=== PATIENT | male | born 1935 | race Caucasian/White ===

== ENCOUNTER 2021-06-10 11:41 | Inpatient (IN) ==
[2021-06-10 13:43] LABS: Basophils % 0.2 % (0.0-0.8); Hematocrit 42.6 VOL% (42.0-52.0); Hemoglobin 14.4 GM/DL (14.0-18.0); Immature Granulocytes % 1.6 %; Immature Granulocytes Absolute 0.26 #; Lymphocytes # 0.5 10*3/uL (1.4-4.0); Lymphocytes % 3.1 % (21.2-54.2); Mean Corpuscular HGB Conc 33.8 GM/DL (32-36); Mean Corpuscular Volume 91.2 FL (87-102); Mean Platelet Volume 9.4 FL (9.6-12.0); Monocytes % 2.4 % (1.7-12.7); Neutrophils % 92.7 % (38.7-73.9); Platelet Count 197 T/CUMM (130-400); Red Blood Count 4.67 MC/CUMM (3.8-5.5); Red Cell Distribution Width 13.4 % (9.3-17.3); White Blood Count 16.3 T/CUMM (4-12)
[2021-06-10 13:55] LABS: Albumin 3.3 G/DL (3.4-5.0); Calcium 8.8 MG/DL (8.5-10.1); Osmolality,Calculated 279.1 MOS/KG (273-304); Potassium 3.8 MMOL/L (3.5-5.1); Total Protein 6.9 G/DL (6.4-8.2)
[2021-06-10 14:09] LABS: Band Neutrophils 20 % (0-10); Lymphocytes 4 % (20-55); Segmented Neutrophils 75 % (50-85); Total Cells Counted 100
[2021-06-10 14:10] LABS: Elliptocytes Few; Platelet Estimate Normal; Poikilocytosis Few
[2021-06-10] MEDS ORDERED: cefTRIAXone 1,000 MG in SODIUM CHLORIDE 0.9% 100 ML IV STA (14:12)
[2021-06-10] MEDS ORDERED: AZITHROMYCIN 250 MG TABLET PO STA (14:12)
[2021-06-10] MEDS ORDERED: ONDANSETRON 4 MG/2 ML VIAL IV PRN (14:26)
[2021-06-10] MEDS ORDERED: SODIUM CHLORIDE 0.9% 2,500 ML IV ONE (16:52)
[2021-06-10] MEDS ORDERED: ZALEPLON 5 MG CAPSULE PO PRN (17:54)
[2021-06-10 18:29] LABS: Bilirubin,Total 1.2 MG/DL (0.20-1.00); Calcium 8.3 MG/DL (8.5-10.1); Osmolality,Calculated 275.2 MOS/KG (273-304); Potassium 3.7 MMOL/L (3.5-5.1); Total Protein 6.2 G/DL (6.4-8.2)
[2021-06-10] MEDS ORDERED: CLOPIDOGREL 75 MG TABLET PO STA (20:10)
[2021-06-10] MEDS: ATORVASTATIN 40 MG TABLET PO SCH (21:19)
[2021-06-10] MEDS: TAMSULOSIN 0.4 MG CAPSULE PO SCH (21:19)
[2021-06-10] MEDS: DOCUSATE SODIUM 100 MG CAPSULE PO SCH (21:19)
[2021-06-10] MEDS: SODIUM CHLORIDE 0.45% 1,000 ML IV SCH (21:26)
[2021-06-11 00:48] LABS: Albumin 2.6 G/DL (3.4-5.0); Bilirubin,Total 0.9 MG/DL (0.20-1.00); Calcium 8.4 MG/DL (8.5-10.1); Osmolality,Calculated 274.2 MOS/KG (273-304); Potassium 3.6 MMOL/L (3.5-5.1)
[2021-06-11 00:54] LABS: Basophils % 0.1 % (0.0-0.8); Hematocrit 37.2 VOL% (42.0-52.0); Hemoglobin 12.5 GM/DL (14.0-18.0); Immature Granulocytes % 1.5 %; Immature Granulocytes Absolute 0.19 #; Lymphocytes # 0.6 10*3/uL (1.4-4.0); Lymphocytes % 4.8 % (21.2-54.2); Mean Corpuscular HGB Conc 33.6 GM/DL (32-36); Mean Corpuscular Volume 92.5 FL (87-102); Mean Platelet Volume 9.4 FL (9.6-12.0); Monocytes % 2.1 % (1.7-12.7); Neutrophils % 91.5 % (38.7-73.9); Platelet Count 166 T/CUMM (130-400); Red Blood Count 4.02 MC/CUMM (3.8-5.5); Red Cell Distribution Width 13.4 % (9.3-17.3); White Blood Count 12.5 T/CUMM (4-12)
[2021-06-11 01:33] LABS: Band Neutrophils 7 % (0-10); Lymphocytes 5 % (20-55); Platelet Estimate Normal; Segmented Neutrophils 86 % (50-85); Total Cells Counted 100
[2021-06-11] MEDS: ACETAMINOPHEN 325 MG TABLET PO PRN (03:55)
[2021-06-11] MEDS: CLOPIDOGREL 75 MG TABLET PO SCH (08:58)
[2021-06-11] MEDS: ASPIRIN EC 81 MG TABLET PO SCH (08:58)
[2021-06-11] MEDS: PANTOPRAZOLE 40 MG TABLET PO SCH (08:58)
[2021-06-11] MEDS: AZITHROMYCIN 250 MG TABLET PO SCH (08:58)
[2021-06-11] MEDS: hydroCHLOROthiazide 12.5 MG CAPSULE PO SCH (08:58)
[2021-06-11] MEDS: SODIUM CHLORIDE 0.45% 1,000 ML IV SCH ×3 (09:04→21:37)
[2021-06-11] MEDS: DOCUSATE SODIUM 100 MG CAPSULE PO SCH ×2 (09:45→21:27)
[2021-06-11] MEDS: cefTRIAXone 1,000 MG in SODIUM CHLORIDE 0.9% 100 ML IV SCH (17:09)
[2021-06-11] MEDS: TAMSULOSIN 0.4 MG CAPSULE PO SCH (21:27)
[2021-06-11] MEDS: ATORVASTATIN 40 MG TABLET PO SCH (21:27)
[2021-06-12] MEDS: ACETAMINOPHEN 325 MG TABLET PO PRN (00:29)
[2021-06-12] MEDS: CLOPIDOGREL 75 MG TABLET PO SCH (09:05)
[2021-06-12] MEDS: ASPIRIN EC 81 MG TABLET PO SCH (09:05)
[2021-06-12] MEDS: AZITHROMYCIN 250 MG TABLET PO SCH (09:05)
[2021-06-12] MEDS: DOCUSATE SODIUM 100 MG CAPSULE PO SCH ×2 (09:05→20:45)
[2021-06-12] MEDS: PANTOPRAZOLE 40 MG TABLET PO SCH (09:05)
[2021-06-12] MEDS: hydroCHLOROthiazide 12.5 MG CAPSULE PO SCH (09:05)
[2021-06-12] MEDS ORDERED: ALBUTEROL 2.5 MG/3 ML NEB RESP TX PRN (09:15)
[2021-06-12] MEDS: SODIUM CHLORIDE 0.45% 1,000 ML IV SCH (11:38)
[2021-06-12] MEDS: ALBUTEROL 2.5 MG/3 ML NEB RESP TX SCH ×2 (14:11→19:12)
[2021-06-12] MEDS: cefTRIAXone 1,000 MG in SODIUM CHLORIDE 0.9% 100 ML IV SCH (17:22)
[2021-06-12] MEDS: carvediloL 3.125 MG TABLET PO SCH (17:22)
[2021-06-12] MEDS: TAMSULOSIN 0.4 MG CAPSULE PO SCH (20:44)
[2021-06-12] MEDS: ATORVASTATIN 40 MG TABLET PO SCH (20:44)
[2021-06-13] MEDS: ALBUTEROL 2.5 MG/3 ML NEB RESP TX SCH ×4 (01:40→20:38)
[2021-06-13 04:50] LABS: Basophils % 0.1 % (0.0-0.8); Eosinophils # 0.1 10*3/uL (0.0-0.87); Eosinophils % 1.7 % (0.00-10.9); Hematocrit 35.2 VOL% (42.0-52.0); Immature Granulocytes % 0.4 %; Immature Granulocytes Absolute 0.03 #; Lymphocytes # 0.9 10*3/uL (1.4-4.0); Mean Corpuscular HGB Conc 34.1 GM/DL (32-36); Mean Corpuscular Volume 89.8 FL (87-102); Mean Platelet Volume 9.3 FL (9.6-12.0); Monocytes % 9.9 % (1.7-12.7); Neutrophils % 75.9 % (38.7-73.9); Platelet Count 186 T/CUMM (130-400); Red Blood Count 3.92 MC/CUMM (3.8-5.5); White Blood Count 7.7 T/CUMM (4-12)
[2021-06-13 05:11] LABS: Calcium 8.7 MG/DL (8.5-10.1); Osmolality,Calculated 274.8 MOS/KG (273-304); Potassium 2.7 MMOL/L (3.5-5.1)
[2021-06-13] MEDS: hydroCHLOROthiazide 12.5 MG CAPSULE PO SCH (08:57)
[2021-06-13] MEDS: carvediloL 3.125 MG TABLET PO SCH ×2 (08:58→16:29)
[2021-06-13] MEDS: CLOPIDOGREL 75 MG TABLET PO SCH (08:58)
[2021-06-13] MEDS: DOCUSATE SODIUM 100 MG CAPSULE PO SCH ×2 (08:58→20:42)
[2021-06-13] MEDS: ASPIRIN EC 81 MG TABLET PO SCH (08:58)
[2021-06-13] MEDS: AZITHROMYCIN 250 MG TABLET PO SCH (08:58)
[2021-06-13] MEDS ORDERED: cloNIDine 0.1 MG TABLET PO PRN (09:45)
[2021-06-13] MEDS: PANTOPRAZOLE 40 MG TABLET PO SCH (09:47)
[2021-06-13] MEDS: POTASSIUM CHLORIDE 20 MEQ TABLET PO PRN ×3 (10:58→20:42)
[2021-06-13] MEDS ORDERED: carvediloL 3.125 MG TABLET PO SCH (17:00)
[2021-06-13] MEDS: cefTRIAXone 1,000 MG in SODIUM CHLORIDE 0.9% 100 ML IV SCH (18:30)
[2021-06-13] MEDS: TAMSULOSIN 0.4 MG CAPSULE PO SCH (20:40)
[2021-06-13] MEDS: ATORVASTATIN 40 MG TABLET PO SCH (20:40)
[2021-06-13] MEDS: TIMOLOL 0.5% OPH SOLN 5 ML BOTTLE BOTH EYES SCH (20:42)
[2021-06-13] MEDS: LATANOPROST 0.005% OPH SOLN 2.5 ML BOTTLE BOTH EYES SCH (20:42)
[2021-06-14] MEDS: ALBUTEROL 2.5 MG/3 ML NEB RESP TX SCH ×4 (01:10→19:38)
[2021-06-14 06:04] LABS: Basophils % 0.4 % (0.0-0.8); Eosinophils # 0.2 10*3/uL (0.0-0.87); Eosinophils % 2.2 % (0.00-10.9); Hematocrit 37.1 VOL% (42.0-52.0); Hemoglobin 12.7 GM/DL (14.0-18.0); Immature Granulocytes Absolute 0.08 #; Lymphocytes # 0.9 10*3/uL (1.4-4.0); Lymphocytes % 10.9 % (21.2-54.2); Mean Corpuscular HGB Conc 34.2 GM/DL (32-36); Mean Platelet Volume 8.8 FL (9.6-12.0); Neutrophils % 74.5 % (38.7-73.9); Platelet Count 205 T/CUMM (130-400); Red Blood Count 4.12 MC/CUMM (3.8-5.5); Red Cell Distribution Width 13.2 % (9.3-17.3); White Blood Count 8.4 T/CUMM (4-12)
[2021-06-14 06:19] LABS: Calcium 8.9 MG/DL (8.5-10.1); Osmolality,Calculated 279.5 MOS/KG (273-304); Potassium 3.3 MMOL/L (3.5-5.1)
[2021-06-14] MEDS: POTASSIUM CHLORIDE 20 MEQ TABLET PO PRN ×3 (06:26→11:38)
[2021-06-14] MEDS: carvediloL 3.125 MG TABLET PO SCH ×2 (09:25→17:44)
[2021-06-14] MEDS: ASPIRIN EC 81 MG TABLET PO SCH (09:25)
[2021-06-14] MEDS: CLOPIDOGREL 75 MG TABLET PO SCH (09:25)
[2021-06-14] MEDS: hydroCHLOROthiazide 12.5 MG CAPSULE PO SCH (09:26)
[2021-06-14] MEDS: AZITHROMYCIN 250 MG TABLET PO SCH (09:26)
[2021-06-14] MEDS: prednisoLONE ACETATE 1% OPH SUSP 5 ML BOTTLE BOTH EYES SCH (09:26)
[2021-06-14] MEDS: TIMOLOL 0.5% OPH SOLN 5 ML BOTTLE BOTH EYES SCH ×2 (09:26→22:14)
[2021-06-14] MEDS: DOCUSATE SODIUM 100 MG CAPSULE PO SCH ×2 (09:26→22:13)
[2021-06-14] MEDS: PANTOPRAZOLE 40 MG TABLET PO SCH (09:26)
[2021-06-14] MEDS ORDERED: cloNIDine 0.1 MG TABLET PO SCH (21:00)
[2021-06-14] MEDS: ATORVASTATIN 40 MG TABLET PO SCH (22:13)
[2021-06-14] MEDS: TAMSULOSIN 0.4 MG CAPSULE PO SCH (22:13)
[2021-06-14] MEDS: LATANOPROST 0.005% OPH SOLN 2.5 ML BOTTLE BOTH EYES SCH (22:15)
[2021-06-14] MEDS: cefTRIAXone 1,000 MG in SODIUM CHLORIDE 0.9% 100 ML IV SCH (23:01)
[2021-06-15] MEDS: ALBUTEROL 2.5 MG/3 ML NEB RESP TX SCH ×2 (00:01→07:10)
[2021-06-15 06:11] LABS: Basophils % 0.5 % (0.0-0.8); Eosinophils # 0.2 10*3/uL (0.0-0.87); Eosinophils % 2.4 % (0.00-10.9); Hematocrit 36.6 VOL% (42.0-52.0); Immature Granulocytes Absolute 0.09 #; Lymphocytes # 1.1 10*3/uL (1.4-4.0); Lymphocytes % 12.4 % (21.2-54.2); Mean Corpuscular HGB Conc 32.8 GM/DL (32-36); Mean Corpuscular Volume 91.3 FL (87-102); Monocytes % 11.2 % (1.7-12.7); Neutrophils % 72.5 % (38.7-73.9); Platelet Count 226 T/CUMM (130-400); Red Blood Count 4.01 MC/CUMM (3.8-5.5); Red Cell Distribution Width 13.2 % (9.3-17.3); White Blood Count 8.8 T/CUMM (4-12)
[2021-06-15 06:35] LABS: Calcium 9.1 MG/DL (8.5-10.1); Potassium 3.5 MMOL/L (3.5-5.1)
[2021-06-15 07:55] VITALS: BP 149/72
[2021-06-15] MEDS: DOCUSATE SODIUM 100 MG CAPSULE PO SCH (09:14)
[2021-06-15] MEDS: ASPIRIN EC 81 MG TABLET PO SCH (09:14)
[2021-06-15] MEDS: hydroCHLOROthiazide 12.5 MG CAPSULE PO SCH (09:15)
[2021-06-15] MEDS: prednisoLONE ACETATE 1% OPH SUSP 5 ML BOTTLE BOTH EYES SCH (09:15)
[2021-06-15] MEDS: CLOPIDOGREL 75 MG TABLET PO SCH (09:15)
[2021-06-15] MEDS: TIMOLOL 0.5% OPH SOLN 5 ML BOTTLE BOTH EYES SCH (09:15)
[2021-06-15] MEDS: PANTOPRAZOLE 40 MG TABLET PO SCH (09:15)
[2021-06-15] MEDS: carvediloL 3.125 MG TABLET PO SCH (09:15)
[2021-06-15] MEDS ORDERED: CEFUROXIME 500 MG TABLET PO SCH (21:00)
== END 2021-06-15 10:55 | disposition home or self-care (01) | DRG 194 ==
LOC: N.ED 11:41 → N.EDINP 11:41 → N.5E 21:49
PROVIDERS: ADMIT Family Medicine; ATTEND Family Medicine

== ENCOUNTER 2022-03-31 05:54 | Inpatient (IN) ==
[2022-03-22 12:12] LABS: Basophils % 0.4 % (0.0-0.8); Eosinophils # 0.1 10*3/uL (0.0-0.87); Eosinophils % 1.7 % (0.00-10.9); Hematocrit 42.8 VOL% (42.0-52.0); Hemoglobin 13.9 GM/DL (14.0-18.0); Immature Granulocytes % 0.2 %; Immature Granulocytes Absolute 0.02 #; Lymphocytes % 12.4 % (21.2-54.2); Mean Corpuscular HGB Conc 32.5 GM/DL (32-36); Mean Corpuscular Volume 94.9 FL (87-102); Mean Platelet Volume 9.9 FL (9.6-12.0); Monocytes # 0.8 10*3/uL (0.11-0.8); Monocytes % 9.8 % (1.7-12.7); Neutrophils % 75.5 % (38.7-73.9); Platelet Count 194 T/CUMM (130-400); Red Blood Count 4.51 MC/CUMM (3.8-5.5); Red Cell Distribution Width 12.8 % (9.3-17.3); White Blood Count 8.2 T/CUMM (4-12)
[2022-03-22 12:19] LABS: INR 1.1; PT Patient Result 11.6 SECS (10.1-12.1)
[2022-03-22 12:43] LABS: Albumin 3.5 G/DL (3.4-5.0); Bilirubin,Total 0.6 MG/DL (0.20-1.00); Calcium 9.5 MG/DL (8.5-10.1); Osmolality,Calculated 270.1 MOS/KG (273-304); Potassium 4.3 MMOL/L (3.5-5.1)
[2022-03-31] MEDS ORDERED: LACTATED RINGERS 1,000 ML IV SCH (07:30)
[2022-03-31] MEDS ORDERED: HEPARIN/NACL 0.9% 2 UNITS/ML 6,000 UNIT/3,000 ML BAG IV ONE (07:35)
[2022-03-31] MEDS ORDERED: KETAMINE 500 MG/10 ML VIAL ONE (07:58)
[2022-03-31] MEDS ORDERED: PROTAMINE SULFATE 50 MG/5 ML VIAL IV ONE (07:59)
[2022-03-31] MEDS ORDERED: HEPARIN 10,000 UNIT/10 ML VIAL ONE ×2 (07:59→13:31)
[2022-03-31] MEDS ORDERED: SUGAMMADEX 200 MG/2 ML VIAL IV ONE (08:40)
[2022-03-31 10:47] LABS: Hematocrit 34.3 VOL% (42.0-52.0); Hemoglobin 11.5 GM/DL (14.0-18.0)
[2022-03-31] MEDS ORDERED: HYDROmorphone 1 MG/1 ML SYRINGE IV PRN (12:59)
[2022-03-31] MEDS ORDERED: ONDANSETRON 4 MG/2 ML VIAL IV PRN (12:59)
[2022-03-31] MEDS ORDERED: LOSARTAN 25 MG TABLET PO PRN (13:01)
[2022-03-31] MEDS ORDERED: fentaNYL 100 MCG/2 ML VIAL ONE (13:26)
[2022-03-31] MEDS ORDERED: SEVOFLURANE 1 UNIT/15 MINUTE INH ONE (13:29)
[2022-03-31] MEDS ORDERED: propofoL 200 MG/20 ML VIAL IV ONE (13:30)
[2022-03-31] MEDS ORDERED: ROCURONIUM 50 MG/5 ML VIAL IV ONE (13:30)
[2022-03-31] MEDS ORDERED: PHENYLEPHRINE DRIP 20 MG/250 ML PREMIX IV ONE (13:31)
[2022-03-31] MEDS ORDERED: SODIUM CHLORIDE 0.9% 1,000 ML IV ONE (13:31)
[2022-03-31] MEDS ORDERED: LACTATED RINGERS 2,000 ML IV ONE (13:31)
[2022-03-31 13:45] LABS: Hemoglobin 11.1 GM/DL (14.0-18.0)
[2022-03-31 13:59] LABS: Calcium 7.8 MG/DL (8.5-10.1); Potassium 4.3 MMOL/L (3.5-5.1)
[2022-03-31] MEDS: LACTATED RINGERS 1,000 ML IV SCH ×2 (14:15→20:19)
[2022-03-31] MEDS ORDERED: INFLUENZA VIRUS VACCINE 0.5 ML SYRINGE IM ONE (14:59)
[2022-03-31] MEDS ORDERED: PHENOL 1.4% THROAT SPRAY 177 ML BOTTLE PO PRN (16:22)
[2022-03-31] MEDS: CLOPIDOGREL 75 MG TABLET PO SCH (17:59)
[2022-03-31] MEDS: carvediloL 3.125 MG TABLET PO SCH (17:59)
[2022-03-31] MEDS: TIMOLOL 0.5% OPH SOLN 5 ML BOTTLE BOTH EYES SCH (20:21)
[2022-03-31] MEDS ORDERED: TAMSULOSIN 0.4 MG CAPSULE PO SCH (21:00)
[2022-03-31] MEDS ORDERED: DUTASTERIDE 0.5 MG CAPSULE PO SCH (21:00)
[2022-03-31] MEDS ORDERED: LATANOPROST 0.005% OPH SOLN 2.5 ML BOTTLE BOTH EYES SCH (21:00)
[2022-03-31] MEDS ORDERED: ATORVASTATIN 40 MG TABLET PO SCH (21:00)
[2022-04-01] MEDS: LACTATED RINGERS 1,000 ML IV SCH (03:48)
[2022-04-01 05:30] LABS: Basophils % 0.2 % (0.0-0.8); Eosinophils # 0.1 10*3/uL (0.0-0.87); Eosinophils % 0.8 % (0.00-10.9); Hematocrit 32.4 VOL% (42.0-52.0); Hemoglobin 11.1 GM/DL (14.0-18.0); Immature Granulocytes % 0.3 %; Immature Granulocytes Absolute 0.03 #; Lymphocytes # 0.8 10*3/uL (1.4-4.0); Lymphocytes % 9.5 % (21.2-54.2); Mean Corpuscular HGB Conc 34.3 GM/DL (32-36); Mean Corpuscular Volume 93.6 FL (87-102); Monocytes # 0.9 10*3/uL (0.11-0.8); Monocytes % 9.8 % (1.7-12.7); Neutrophils % 79.4 % (38.7-73.9); Platelet Count 146 T/CUMM (130-400); Red Blood Count 3.46 MC/CUMM (3.8-5.5); Red Cell Distribution Width 13.1 % (9.3-17.3); White Blood Count 8.7 T/CUMM (4-12)
[2022-04-01 05:53] LABS: Calcium 8.3 MG/DL (8.5-10.1); Osmolality,Calculated 279.5 MOS/KG (273-304); Potassium 3.7 MMOL/L (3.5-5.1)
[2022-04-01] MEDS: TIMOLOL 0.5% OPH SOLN 5 ML BOTTLE BOTH EYES SCH (08:55)
[2022-04-01] MEDS: CLOPIDOGREL 75 MG TABLET PO SCH (08:55)
[2022-04-01] MEDS: carvediloL 3.125 MG TABLET PO SCH (08:55)
[2022-04-01] MEDS ORDERED: ASPIRIN EC 81 MG TABLET PO SCH (09:00)
[2022-04-01] MEDS ORDERED: hydroCHLOROthiazide 12.5 MG CAPSULE PO SCH (09:00)
[2022-04-01] MEDS ORDERED: prednisoLONE ACETATE 1% OPH SUSP 5 ML BOTTLE BOTH EYES SCH (09:00)
[2022-04-01 11:05] VITALS: BP 146/65
[2022-04-01] MEDS ORDERED: INFLUENZA VIRUS VACCINE 0.5 ML SYRINGE IM ONE (13:30)
== END 2022-04-01 13:04 | disposition home or self-care (01) | DRG 269 ==
LOC: N.RAD 05:54 → N.SDSINP 05:56 → N.3E 14:21
PROVIDERS: ADMIT Radiology Diagnostic Radiology; ATTEND Radiology Diagnostic Radiology
PROC: IRERAAA (2022-03-31 07:05)